=== PATIENT | female | born 1990 | race Caucasian/White ===

== ENCOUNTER 2025-01-17 10:02 | Emergency (ER) | payer BC, SELFPAY ==
[2025-01-17 10:18] VITALS: BP 138/82; PULSE 89; RESP 20; TEMP 36.4; O2SAT 100; BMI 23.9
[2025-01-17 11:54] LABS: Ur HCG Qualitative* Negative (Negative)
[2025-01-17 12:02] LABS: Cannabinoid Screen Urine Negative (Negative); Methamphetamines Screen Urine Negative (Negative); Tricyclic Antidepressant Urine Negative (Negative)
[2025-01-17 12:10] LABS: Hematocrit* 39.5 % (33.0-51.0); Hemoglobin* 13.2 gm/dL (12.0-16.0); Immature Granulocytes Abs Auto 0.01 K/uL (0.00-0.30); Immature Granulocytes Pct Auto 0.1 %; Mean Corpuscular HGB Conc 33 gm/dL (32-36); Mean Corpuscular Hemoglobin 32 pg (26-34); Mean Corpuscular Volume 95 fL (80-100); RDW Coefficient of Variation % 11.3 % (11.5-15.5); Red Blood Count* 4.18 m/uL (4.00-5.20); White Blood Count* 7.29 K/uL (4.50-11.00)
[2025-01-17 12:27] LABS: Lymphocytes Absolute Auto 0.90 K/uL (0.90-2.90); Slide Review Reflex No
[2025-01-17 12:29] LABS: Albumin* 5.0 g/dL (3.3-5.0); Chloride* 107 mmol/L (96-114); Potassium* 3.6 mmol/L (3.6-5.1); Sodium* 141 mmol/L (135-149)
[2025-01-17 12:32] LABS: Alanine Aminotransferase* 18 U/L (4-35); Alkaline Phosphatase* 65 U/L (40-150); Anion Gap 10 mEq/L (7-15); Aspartate Amino Transferase* 30 U/L (12-35); Bilirubin Direct* 0.0 mg/dL (0.0-0.5); Bilirubin Total* 0.4 mg/dL (0.1-1.5); Blood Urea Nitrogen* 10 mg/dL (5-24); Calcium* 10.0 mg/dL (8.4-10.6); Carbon Dioxide* 24 mmol/L (20-32); Creatinine* 0.6 mg/dL (0.5-1.5); Est. Creatinine Clearance* 139.37; Estimated Glomerular Filt Rate 121 ml/min; Glucose* 104 mg/dL (60-115); Total Protein* 8.6 g/dL (6.0-8.3)
[2025-01-17 12:34] LABS: Ethanol* < 0.01 % (0.01-0.03)
--- NOTE | 2025-01-17 12:42 | PC.SOCIAL ---
Social work: Met with pt per MD request. Pt was open to meeting with professor of social work and sharing her story of mental health challenges. Pt shared that she has been on medication and receiving therapy in the past for anxiety but had been told by professionals that she no longer needed these, so had discontinued both over a year ago and was doing well until this event. Pt states she felt things were going well until recently when she had a panic attack she is now coming down from. Pt is open to finding a primary care physician and a therapist to connect with for ongoing support. She has been living in [place] for about a year and has not yet connected with a primary care provider. Provided pt with list of [facility] mental health providers and shared some tips on connecting and researching therapists for the best fit. Provided pt with resource list of immediate mental health support including hotlines and crisis lines. Suggested the [facility] crisis [facility] as a short term option for support if pt has another panic attack before she is connected with a therapist, as they can provide short term counseling and support. Pt denies any thought of hurting herself or others at this time and feels safe with plan to discharge home. Pt states she has called her father who lives nearby and plans to spend the rest of the day with him after discharge. This is a supportive relationship for her. Pt was appreciative of the information provided and is aware of how to reach this professor of social work if she has questions or is in need of additional resources.
[2025-01-17 13:03] LABS: HCG Qualitative Serum* Negative (Negative)
--- NOTE | 2025-01-17 14:22 | ED.ANXIETY ---
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 She said this is been building up for the last few weeks to a month, she previously was on Lexapro for this, but stopped and has been off for approximately 1 year denies any alcohol or drugs denies being suicidal or homicidal. Does feel however that this is impacting her daily living, it is opened to restarting her Lexapro along with counseling, denies any problems with sleeping, eating, nausea vomiting chest pain, shortness of breath, leg swelling or other issues. Related Data Previous Rx's ?Medication ?Instructions ?Recorded escitalopram oxalate 5 mg tablet 5 mg PO DAILY #30 tabs 01/17/25 (Lexapro) Allergies Allergy/AdvReac Type Severity Reaction Status Date / Time No Known Drug Allergies Allergy Verified 06/27/24 10:21 Review of Systems Status of ROS: Reports: 10 or more systems reviewed and unremarkable except as noted in History and below PFSH PFSH Social History Smoking Status: Never smoker How often do you have a drink containing alcohol: never How often do you have six or more drinks on one occasion: Never AUDIT-C Alcohol total score: 0 Non-prescribed substance use: denies use service: No Exam Narrative: Exam Narrative: On examination room 4 she is in no apparent distress she is pleasant alert, her vital signs are reasonable examined with the nurse present, pupils equal round reactive to light oropharynx normal neck supple thyroid normal midline not enlarged, cranial nerves 3-12 are normal chest is clear bilaterally no wheezing crackles noted, heart sounds are normal, no clicks murmurs or gallops, abdominal exam is normal, no tenderness to palpation she moves all extremities independently well no tremors, no signs of IV drug use. Const: Vital Signs, click to edit/add: Vital Signs - 24 hr 01/17/25 10:18 Temperature 97.5 F L Pulse Rate [Pulse Oximeter] 89 Respiratory Rate 20 Blood Pressure [Ri ght Upper Arm] 138/82 Pulse Oximetry 100 Oxygen Delivery Me thod Room Air Course Course ED Course: I had social Work see her is give her off options local counseling. Vital Signs Vital signs: Initial Vital Signs Temperature 97.5 F L 01/17/25 10:18 Temperature Source Temporal Artery Scan 01/17/25 10:18 Pulse Rate 89 01/17/25 10:18 Respiratory Rate 20 01/17/25 10:18 Blood Pressure 138/82 01/17/25 10:18 Blood Pressure Mean 100 01/17/25 10:18 Blood Pressure Position Sitting 01/17/25 10:18 Pulse Oximetry 100 01/17/25 10:18 Oxygen Delivery Method Room Air 01/17/25 10:18 Vital Signs Temperature 97.5 F L 01/17/25 10:18 Pulse Rate 89 01/17/25 10:18 Respiratory Rate 20 01/17/25 10:18 Blood Pressure 138/82 01/17/25 10:18 Pulse Oximetry 100 01/17/25 10:18 Oxygen Delivery Method Room Air 01/17/25 10:18 Temperature 97.5 F L 01/17/25 10:18 Pulse Rate 89 01/17/25 10:18 Respiratory Rate 20 01/17/25 10:18 Blood Pressure 138/82 01/17/25 10:18 Pulse Oximetry 100 01/17/25 10:18 Oxygen Delivery Method Room Air 01/17/25 10:18 Medications Administered Medications: Discontinued Medications Generic Name Dose Route Start Last Admin Trade Name Freq PRN Reason Stop Dose Admin Sodium Chloride 1,000 mls @ 1,000 mls/hr 01/17/25 11:30 01/17/25 11:51 0.9 % Sodium Chloride 1000 Ml IV 01/17/25 12:29 Not Given .Q1H MARILIN Lorazepam 0.5 mg 01/17/25 11:25 01/17/25 11:48 Lorazepam 0.5 Mg Tablet PO 01/17/25 11:26 0.5 mg ONCE ONE Administration Ondansetron HCl 4 mg 01/17/25 11:25 01/17/25 11:51 Ondansetron 2 Mg/Ml Inj IVP 01/17/25 11:26 Not Given ONCE ONE MDM - Anxiety MDM Narrative Medical decision making narrative: Her father came here and confirmed, that she is not suicidal or homicidal, no history of any use of drugs or alcohol she was very reasonable, and I think it would be okay to treat her as an outpatient had a long discussion over medications and restarting her Lexapro, and follow-up appointment with primary care for this she was in agreement. Differential Diagnosis Differential diagnosis: Likely hyperventilation, panic disorder and acute anxiety Medical Records Attestation: I reviewed the patient's medical records. Lab Data Attestation: I reviewed the patient's lab results. Lab results narrative: Discussed lab results which were all normal with patient Labs: Lab Results 01/17/25 01/17/25 Range/Units 11:44 12:00 WBC 7.29 (4.50-11.00) K/uL RBC 4.18 (4.00-5.20) m/uL Hgb 13.2 (12.0-16.0) gm/dL Hct 39.5 (33.0-51.0) % MCV 95 (80-100) fL MCH 32 (26-34) pg MCHC 33 (32-36) gm/dL RDW Coeff of Prosper 11.3 L (11.5-15.5) % Plt Count 316 (140-440) K/uL Neut % (Auto) 76.8 H (42.0-72.0) % Lymph % (Auto) 12.9 L (20-44) % Lyon % (Auto) 9.7 (0.0-11.0) % Eos % (Auto) 0.4 (0.0-7.0) % Baso % (Auto) 0.1 (0.0-3.0) % Neut # (Auto) 5.60 (1.7-7.0) K/uL Lymph # (Auto) 0.90 (0.90-2.90) K/uL Lyon # (Auto) 0.70 (0.00-0.90) K/UL Eos # (Auto) 0.03 (0.00-0.50) K/uL Baso # (Auto) 0.01 (0.00-0.30) K/uL Abs Immat Gran (auto) 0.01 (0.00-0.30) K/uL Imm/Tot Granulo (auto) 0.1 % Sodium 141 (135-149) mmol/L Potassium 3.6 (3.6-5.1) mmol/L Chloride 107 (96-114) mmol/L Carbon Dioxide 24 (20-32) mmol/L Anion Gap 10 (7-15) mEq/L BUN 10 (5-24) mg/dL Creatinine 0.6 (0.5-1.5) mg/dL Estimated Creat Clear 139.37 Estimated GFR 121 ml/min Glucose 104 (60-115) mg/dL Calcium 10.0 (8.4-10.6) mg/dL Total Bilirubin 0.4 (0.1-1.5) mg/dL Direct Bilirubin 0.0 (0.0-0.5) mg/dL AST 30 (12-35) U/L ALT 18 (4-35) U/L Alkaline Phosphatase 65 (40-150) U/L Total Protein 8.6 H (6.0-8.3) g/dL Albumin 5.0 (3.3-5.0) g/dL TSH 3.170 (0.270-4.20) uIU/mL HCG, Qual Negative (Negative) Urine HCG, Qual Negative (Negative) Urine Opiates Screen Negative (Negative) Ur Oxycodone Screen Negative (Negative) Urine Methadone Screen Negative (Negative) Ur Barbiturates Screen Negative (Negative) U Tricyclic Antidepress Negative (Negative) Ur Phencyclidine Scrn Negative (Negative) Ur Amphetamines Screen Negative (Negative) U Methamphetamines Scrn Negative (Negative) U Benzodiazepines Scrn Negative (Negative) Urine Cocaine Screen Negative (Negative) U Marijuana (THC) Screen Negative (Negative) Ur Drug Screen Comment See Note Ethyl Alcohol < 0.01 (0.01-0.03) % ECG Data Attestation: I personally reviewed and interpreted this ECG as follows: ECG interpretation date: 01/17/25 Prior ECG tracings: not available for review Interpretation: EKG shows normal sinus rhythm with sinus arrhythmia, ventricular rate is 79, QRS QT and QTC normal. Discharge Plan Discharge Clinical Impression: Panic disorder, Acute anxiety Patient Disposition: Home w/ Parent or Adult Condition: Stable Instructions: Generalized Anxiety Disorder (ED), Cognitive Behavioral Therapy (ED), Anxiety (ED), Panic Attack (ED) Additional Instructions: Follow up appointment is scheduled at the [facility] on 01/21 with an 8am appointment time. If you have any questions or need to reschedule, please call [phone]. [address] [address] follow-up in the ER if worsening signs and symptoms, such as suicidal or homicidal ideation, start Lexapro at 5 mg a day. Follow-up appointment given. Activity Level: Light activity Discharge Diet: Regular Prescriptions: New escitalopram oxalate [Lexapro] 5 mg tablet 5 mg PO DAILY Qty: 30 0RF Follow Up/Referrals: Provider,Not a Local [Primary Care Provider, Family Practice] Stand Alone Forms: [facility] Info Instructions
== END 2025-01-17 14:13 | disposition home or self-care (01) ==
PROVIDERS: Emergency Provider Family Medicine
DX: F41.0 Panic disorder [episodic paroxysmal anxiety] (principal); F41.9 Anxiety disorder, unspecified; Z79.899 Other long term (current) drug therapy
CPT/HCPCS: 36415; 80048; 80076; 80306; 81025; 82077; 84443; 84703; 85025; 93005; 96374; 99284; A9270